=== PATIENT | male | born 1945 | race Caucasian/White ===

== ENCOUNTER 2020-12-12 17:56 | Inpatient (IN) | payer MEDICARE ==
[~2020-12-12] VITALS: Ht 182.9 cm; Wt 90.7 kg
[~2020-12-12 17:56] MED LIST: EFFEXOR XR150 MG PO; PRAVASTATIN SOD40 MG PO; PRINIVIL10 MG PO
[2020-12-12 21:00] LABS: RED BLOOD COUNT 4.68 M/UL (4.20-5.50); WHITE BLOOD COUNT 5.9 K/UL (4.5-11.0)
[2020-12-12 21:22] LABS: BUN/CREATININE RATIO 17 (0-10)
[2020-12-13] MEDS ORDERED: VITAMIN D325 MC6 PO (18:36)
[2020-12-13] MEDS ORDERED: ALPHAGAN P OP SO5 ML EYEBOTH (18:39)
[2020-12-13] MEDS ORDERED: TIMOLOL 0.5%-DO10 ML EYEBOTH (18:39)
[2020-12-14 05:01] LABS: HEMOGLOBIN 13.4 gm/dl (14.0-17.5)
[2020-12-14 05:07] LABS: RED BLOOD COUNT 4.14 M/UL (4.20-5.50); WHITE BLOOD COUNT 3.5 K/UL (4.5-11.0)
[2020-12-14 06:33] LABS: BUN/CREATININE RATIO 29 (0-10)
--- NOTE | 2020-12-16 01:23 | NUR ---
0030- NO CHANGE FROM 7P NURSING ASSESSMENT
[2020-12-17 04:05] LABS: BUN/CREATININE RATIO 19 (0-10)
[2020-12-17] MEDS ORDERED: LISINOPRIL40 MG PO (09:16)
[2020-12-17] MEDS ORDERED: AZITHROMYCIN250 MG PO (09:16)
[2020-12-17] MEDS ORDERED: DECADRON6 MG PO (09:16)
== END 2020-12-17 11:00 | disposition home or self-care (01) | DRG 177 ==
LOC: ER1 17:56 → ZEROF 12-13 05:27 → M/S 12-13 05:27 → ZEROF 12-13 05:27 → M/S 12-14 20:35
PROVIDERS: Emergency Medicine; Internal Medicine; ADMIT Internal Medicine
PROC: XW033E5 Introduction of Remdesivir Anti-infective into Peripheral Vein, Percutaneous Approach, New Technology Group 5 (ICD-10-PCS; principal; 2020-12-13)
PROC: 8E0ZXY6 Isolation (ICD-10-PCS; 2020-12-13)
PROC: XW13325 Transfusion of Convalescent Plasma (Nonautologous) into Peripheral Vein, Percutaneous Approach, New Technology Group 5 (ICD-10-PCS; 2020-12-13)
DX: U07.1 COVID-19 (principal); J12.82 Pneumonia due to coronavirus disease 2019; J96.01 Acute respiratory failure with hypoxia; I71.4 Abdominal aortic aneurysm, without rupture; R79.1 Abnormal coagulation profile; I10 Essential (primary) hypertension; E78.5 Hyperlipidemia, unspecified; F41.9 Anxiety disorder, unspecified; J20.9 Acute bronchitis, unspecified; Z79.899 Other long term (current) drug therapy; J42 Unspecified chronic bronchitis
CPT/HCPCS: 36415; 36600; 71046; 80048; 80053; 82550; 82553; 82803; 83690; 83874; 84484; 85025; 85379; 85610; 85730; 86900; 86901; 86927; 93005; 96365; 96366; 96372; 96375; 99285; J1100; J1650; J7030; Q9967; U0002

== ENCOUNTER 2022-06-13 10:06 | Emergency (ER) | payer MEDICARE ==
[~2022-06-13 10:06] MED LIST changes: +ALPHAGAN P OP SO5 ML EYEBOTH; +AZITHROMYCIN250 MG PO; +DECADRON6 MG PO; +LISINOPRIL40 MG PO; +TIMOLOL 0.5%-DO10 ML EYEBOTH; +VITAMIN D325 MC6 PO
== END 2022-06-13 14:24 | disposition home or self-care (01) ==
LOC: ER1 10:06
DX: M51.37 Other intervertebral disc degeneration, lumbosacral region (principal); I71.4 Abdominal aortic aneurysm, without rupture; I10 Essential (primary) hypertension; E78.5 Hyperlipidemia, unspecified
CPT/HCPCS: 72131; 96372; 99284; J1100; J1885

== ENCOUNTER 2022-06-15 16:55 | Inpatient (IN) | payer MEDICARE ==
[~2022-06-15] VITALS: Ht 172.7 cm; Wt 90.7 kg
[2022-06-15 18:46] LABS: HEMOGLOBIN 13.6 gm/dl (14.0-17.5); RED BLOOD COUNT 4.15 M/UL (4.20-5.50); WHITE BLOOD COUNT 8.8 K/UL (4.5-11.0)
[2022-06-15 19:16] LABS: BUN/CREATININE RATIO 22 (0-10)
[2022-06-16] MEDS ORDERED: ASPIRIN EC81 MG PO (09:29)
[2022-06-17 07:15] LABS: HEMOGLOBIN 13.5 gm/dl (14.0-17.5); RED BLOOD COUNT 4.22 M/UL (4.20-5.50); WHITE BLOOD COUNT 7.2 K/UL (4.5-11.0)
[2022-06-17 07:30] LABS: BUN/CREATININE RATIO 20 (0-10)
[2022-06-18 06:57] LABS: HEMOGLOBIN 13.6 gm/dl (14.0-17.5); RED BLOOD COUNT 4.23 M/UL (4.20-5.50); WHITE BLOOD COUNT 6.4 K/UL (4.5-11.0)
[2022-06-18 06:59] LABS: BUN/CREATININE RATIO 24 (0-10)
--- NOTE | 2022-06-18 12:18 | NUR ---
informed dr. andrea patient taking his own medications and refused to take medications from hospital
[2022-06-19 07:02] LABS: BUN/CREATININE RATIO 22 (0-10)
[2022-06-20 04:28] LABS: HEMOGLOBIN 14.1 gm/dl (14.0-17.5); RED BLOOD COUNT 4.35 M/UL (4.20-5.50); WHITE BLOOD COUNT 7.3 K/UL (4.5-11.0)
[2022-06-20 04:31] LABS: BUN/CREATININE RATIO 22 (0-10)
[2022-06-21 04:20] LABS: HEMOGLOBIN 14.2 gm/dl (14.0-17.5); RED BLOOD COUNT 4.41 M/UL (4.20-5.50); WHITE BLOOD COUNT 7.1 K/UL (4.5-11.0)
[2022-06-21 09:35] LABS: BUN/CREATININE RATIO 21 (0-10)
[2022-06-22 04:57] LABS: HEMOGLOBIN 14.3 gm/dl (14.0-17.5); RED BLOOD COUNT 4.39 M/UL (4.20-5.50); WHITE BLOOD COUNT 7.3 K/UL (4.5-11.0)
[2022-06-22 05:19] LABS: BUN/CREATININE RATIO 23 (0-10)
[2022-06-23 04:57] LABS: RED BLOOD COUNT 4.34 M/UL (4.20-5.50); WHITE BLOOD COUNT 7.3 K/UL (4.5-11.0)
[2022-06-23 05:21] LABS: BUN/CREATININE RATIO 23 (0-10)
[2022-06-23] MEDS ORDERED: LISINOPRIL40 MG PO (08:50)
[2022-06-23] MEDS ORDERED: CRESTOR 10 MG T10 MG PO (08:50)
[2022-06-23] MEDS ORDERED: LOPRESSOR 25 MG25 MG PO (08:50)
== END 2022-06-23 13:25 | disposition home or self-care (01) | DRG 65 ==
LOC: ER1 16:55 → CDU 22:11 → MED SURG 4 22:11 → CDU 22:11 → MED SURG 4 22:11
PROVIDERS: Family Medicine; Internal Medicine; ADMIT Internal Medicine
PROC: B24BZZZ Ultrasonography of Heart with Aorta (ICD-10-PCS; principal; 2022-06-17)
DX: I63.9 Cerebral infarction, unspecified (principal); I50.32 Chronic diastolic (congestive) heart failure; Z20.822 Contact with and (suspected) exposure to COVID-19; I11.0 Hypertensive heart disease with heart failure; E11.9 Type 2 diabetes mellitus without complications; I71.2 Thoracic aortic aneurysm, without rupture; I71.4 Abdominal aortic aneurysm, without rupture; I45.10 Unspecified right bundle-branch block; G83.11 Monoplegia of lower limb affecting right dominant side; E78.5 Hyperlipidemia, unspecified; F41.9 Anxiety disorder, unspecified; M54.10 Radiculopathy, site unspecified; I08.3 Combined rheumatic disorders of mitral, aortic and tricuspid valves; I49.3 Ventricular premature depolarization; Z79.4 Long term (current) use of insulin; Z79.82 Long term (current) use of aspirin
CPT/HCPCS: ECHO; 36415; 70450; 70496; 70498; 70551; 72148; 73562; 73590; 73610; 80048; 80053; 80061; 82533; 82550; 82553; 82962; 83036; 83735; 84439; 84443; 84484; 85025; 85027; 93005; 93306; 96374; 96375; 97110-GP-CQ; 97112; 97116; 97116-GP-CQ; 97162; 97165; 97530-GP-CQ; 97535; 99285; G0378; J1650; J2360; J2920; Q9967